=== PATIENT | male | born 1960 | race Caucasian/White ===

== ENCOUNTER 2016-09-20 06:23 | Emergency (ER) | payer OTHER ==
[2016-09-20] MEDS ORDERED: IPRATROPIUM-ALBUTEROL 3 ML NEB INHALATION STA (07:25)
--- NOTE | 2016-09-20 07:43 | XR ---
EXAMINATION TYPE: XR chest 2V DATE OF EXAM: 09/20/2016 7:39 AM COMPARISON: Chest x-ray November 04, 2010. HISTORY: Shortness of breath TECHNIQUE: Frontal and lateral views of the chest are obtained. FINDINGS: There is no focal air space opacity, pleural effusion, or pneumothorax seen. The cardiac silhouette size is within normal limits. The osseous structures are intact. IMPRESSION: No acute cardiopulmonary process.
--- NOTE | 2016-09-20 08:32 | ED ---
SOB HPI - General Chief Complaint: Shortness of Breath Stated Complaint: KAMALA Time Seen by Provider: 09/20/16 07:18 Source: patient Mode of arrival: ambulatory Limitations: no limitations - History of Present Illness Initial Comments: This 56-year-old white male presents with the complaint of shortness of breath. He's also had a nonproductive cough. His symptoms have been present for over 2 days. He states that he has had significant nasal congestion and cannot breathe out of his nose this morning. His symptoms worsened at approximately 4: 30 AM today. He complains of chest congestion as well but denies any fever or chest pains. He denies any known previous cardiac or pulmonary problems. He denies any asthma or COPD. He saw his primary care physician 2 days ago and was placed on Flonase, Tessalon Perles, and Zithromax. He denies any alleviation of the symptoms with these medications. He also is placed on a steroid pack approximately 2 weeks ago. He denies any other complaints or modifying factors. He denies any leg pain or swelling. - Related Data Home Medications Medication Instructions Recorded Confirmed Azithromycin [Zithromax] See Taper PO DAILY 09/20/16 09/20/16 Benzonatate [Tessalon Perles] 200 mg PO TID 09/20/16 09/20/16 Fluticasone Nasal [place] [Flonase 2 spr EA NOSTRIL DAILY PRN 09/20/16 09/20/16 Nasal [place]] Previous Rx's Medication Instructions Recorded Albuterol Sulfate [Proair Hfa] 2 puff INHALATION Q6HR PRN #1 09/20/16 inhaler Amoxic-Pot Clav 875-125Mg 1 each PO Q12HR #20 tablet 09/20/16 [Augmentin Xr 875-125] guaiFENesin-Coden 100-10MG/5ML 10 ml PO Q4HR PRN #250 ml 09/20/16 [Robitussin AC] Allergies Allergy/AdvReac Type Severity Reaction Status Date / Time No Known Allergies Allergy Verified 09/20/16 06:28 Review of Systems ROS Statement: Those systems with pertinent positive or pertinent negative responses have been documented in the HPI. ROS Other: All systems not noted in ROS Statement are negative. Past Medical History Past Medical History: Hyperlipidemia Additional Past Medical History / Comment(s): prostate cancer History of Any Multi-Drug Resistant Organisms: None Reported Past Surgical History: Prostate Surgery, Tonsillectomy Past Psychological History: No Psychological Hx Reported Smoking Status: Former smoker Past Alcohol Use History: Rare Past Drug Use History: None Reported General Exam - General Exam Comments Initial Comments: GENERAL: The patient is well nourished and well hydrated. VITAL SIGNS: Heart rate, blood pressure, respiratory rate reviewed as recorded in nurse's notes. EYES: Pupils are round and reactive. Extraocular movements are intact. No conjunctival / lid redness or swelling. ENT: No external evidence of injury, swelling, or ecchymosis. Airway is patent. Throat is clear. There is moderate nasal congestion noted. NECK: Nontender. No swelling or evidence of injury. No subcutaneous emphysema. Trachea is midline. No thyroid mass. HEART: Regular rate and rhythm. Good peripheral pulses. LUNGS/CHEST: Breath sounds clear and equal bilaterally. No rales, rhonchi, or wheezes. No ecchymosis, subcutaneous emphysema, or tenderness. ABDOMEN: Abdomen soft without tenderness. No palpable masses or organomegaly. No peritoneal signs. No abdominal wall swelling or ecchymosis. EXTREMITIES: No extremity tenderness. Normal muscle tone and function. No thoracolumbar tenderness. NEUROLOGIC: Sensation is grossly intact. Cranial nerve exam reveals face is symmetrical, tongue is midline, speech is clear. SKIN: No abrasions or ecchymosis is noted. No induration or masses noted. PSYCHIATRIC: Alert and oriented. Appropriate behavior and judgment. Limitations: no limitations Course Vital Signs 09/20/16 09/20/16 09/20/16 06:25 07:30 07:49 Temperature 97.8 F Pulse Rate 68 72 63 Respiratory 18 18 Rate Blood Pressure 143/87 132/88 O2 Sat by Pulse 99 97 Oximetry 09/20/16 08:04 Temperature Pulse Rate 66 Respiratory Rate Blood Pressure O2 Sat by Pulse Oximetry Medical Decision Making - Medical Decision Making The patient was seen and examined. All diagnostics were reviewed. The influenza test was negative. The chest x-ray did not show any acute process. The EKG shows a normal sinus rhythm at a rate of 66. There is no ST elevation identified. The CT interval is 166, QRS duration is 90, and QTC intervals 421. The patient received a double DuoNeb breathing treatment. He is having some moderate relief on recheck. Overall, it is felt as though he has a bronchitis and sinusitis. It is felt as though he is stable for discharge with some medication changes. Return parameters are discussed. - Lab Data Lab Results 09/20/16 Range/Units 07:33 Influenza Type A RNA Not Detected (Not Detectd) Influenza Type B (PCR) Not Detected (Not Detectd) Disposition Clinical Impression: Bronchitis, Sinusitis Disposition: HOME SELF-CARE Condition: Good Instructions: Acute Bronchitis (ED), Sinusitis (ED) Additional Instructions: Please stop the Tessalon Perles as well as the Zithromax antibiotic. You may continue with the Flonase nasal spray. You also may benefit from utilizing Afrin nasal spray for 3 days or less. Prescriptions: Albuterol Sulfate [Proair Hfa] 2 puff INHALATION Q6HR PRN #1 inhaler PRN Reason: Shortness Of Breath Or Wheezing Amoxic-Pot Clav 875-125Mg [Augmentin Xr 875-125] 1 each PO Q12HR #20 tablet guaiFENesin-Coden 100-10MG/5ML [Robitussin AC] 10 ml PO Q4HR PRN #250 ml PRN Reason: Cough Referrals: Radha Yan DO [Primary Care Provider] - 1-2 days Time of Disposition: 08:29
[2016-09-20 09:04] VITALS: BP 127/76; PULSE 76; RESP 14; TEMP 97.1
== END 2016-09-20 09:04 | disposition home or self-care (01) ==
LOC: EC 06:23
DX: J40 Bronchitis, not specified as acute or chronic (principal); J32.9 Chronic sinusitis, unspecified; Z87.891 Personal history of nicotine dependence; Z79.899 Other long term (current) drug therapy
CPT/HCPCS: 71020; 87502; 93005; 94640; 99285

== ENCOUNTER 2016-11-12 10:15 | Day surgery (SDC) | payer OTHER ==
[2016-11-09 15:21] VITALS: BMI 32.4
[~2016-11-12 10:15] MED LIST: LACTATED RINGERS 1,000 ML IV SCH
[2016-11-12] MEDS ORDERED: LIDOCAINE 1% 20 ML VIAL (10MG/ML) FOR IV START INTRADERMA ONE (11:58)
[2016-11-12 12:03] VITALS: RESP 18; TEMP 98.7
[2016-11-12] MEDS ORDERED: PROPOFOL 10 MG/ML 20 ML VIAL IV ONE (12:19)
--- NOTE | 2016-11-12 12:37 | P.PCN ---
Date of Procedure: 11/12/16 Preoperative Diagnosis: Postoperative Diagnosis: Procedure(s) Performed: BRIEF HISTORY: Patient is a 56-year-old pleasant female, scheduled for an elective colonoscopy as a part of evaluation of prior history of colon polyps. PROCEDURE PERFORMED: Colonoscopy. PREOPERATIVE DIAGNOSIS: History of colon polyps. IV sedation per Anesthesia. PROCEDURE: After informed consent was obtained, the patient, was brought into the endoscopy unit. IV sedation was administered by Anesthesia under continuous monitoring. Digital rectal examination was normal. Initially the Olympus CF- 160 flexible video colonoscope was then inserted in the rectum, gradually advanced into the cecum without any difficulty. Careful examination was performed as the scope was gradually being withdrawn. Ileocecal valve and the appendiceal orifice were visualized and appeared normal. Prep was excellent. Mucosa of the cecum, ascending colon, transverse colon, descending colon, sigmoid colon, and rectum appeared normal. Scattered sigmoid diverticulosis seen. Retroflexion was performed in the rectum and no lesions were seen. The patient tolerated the procedure well. IMPRESSION: Normal-appearing colon from rectum to cecum with no evidence of colorectal neoplasia. Scattered sigmoid diverticula cyst. RECOMMENDATIONS: Findings of this examination were discussed with the patient as well as his family. He was advised to have a repeat surveillance colonoscopy in 5 years because of the prior history of colon polyps. Implants: Indications for Procedure: Operative Findings: Description of Procedure:
[2016-11-12 13:02] VITALS: BP 121/80; PULSE 63
== END 2016-11-12 13:25 | disposition home or self-care (01) ==
LOC: ORWHC2ENDO 10:15
PROVIDERS: ATTEND Internal Medicine Gastroenterology
DX: Z12.11 Encounter for screening for malignant neoplasm of colon (principal); K57.30 Diverticulosis of large intestine without perforation or abscess without bleeding; Z86.010 Personal history of colon polyps; Z87.891 Personal history of nicotine dependence
CPT/HCPCS: J2704; G0105; 45378

== ENCOUNTER 2016-11-15 10:11 | Emergency (ER) | payer OTHER ==
[2016-11-15 10:18] VITALS: RESP 18; TEMP 98
[2016-11-15] MEDS ORDERED: ASPIRIN 81 MG CHEW PO STA (10:25)
[2016-11-15] MEDS ORDERED: IPRATROPIUM-ALBUTEROL 3 ML NEB INHALATION STA (10:26)
[2016-11-15 10:45] LABS: Basophils % (A) 1 %; CH 30.4; CHCM 35.7; Eosinophils # (A) 0.2 k/uL (0-0.7); Eosinophils % (A) 3 %; HCT 43.2 % (39.0-53.0); HDW 2.95; HGB 15.4 gm/dL (13.0-17.5); Luc # (Auto) 0.18; Luc % (Auto) 3; Lymphocytes # (A) 1.7 k/uL (1.0-4.8); Lymphocytes % (A) 26 %; MCH 30.5 pg (25.0-35.0); MCHC 35.7 g/dL (31.0-37.0); MCV 85.4 fL (80.0-100.0); Mean Platelet Volume 6.7; Monocytes # (A) 0.5 k/uL (0-1.0); Monocytes % (A) 7 %; Neutrophils # (A) 3.9 k/uL (1.3-7.7); Neutrophils % (A) 60 %; RBC 5.06 m/uL (4.30-5.90); RDW 13.1 % (11.5-15.5); WBC 6.4 k/uL (3.8-10.6); WBC (Perox) 6.64
[2016-11-15 10:53] LABS: Partial Thromboplastin Time 22.7 sec (22.0-30.0)
[2016-11-15 10:56] LABS: ALT 46 U/L (21-72); AST 41 U/L (17-59); Alkaline Phosphatase 56 U/L (38-126); Anion Gap 10 mmol/L; Blood Urea Nitrogen 23 mg/dL (9-20); Calcium 8.8 mg/dL (8.4-10.2); Carbon Dioxide 21 mmol/L (22-30); Chloride 109 mmol/L (98-107); Glucose 106 mg/dL (74-99); Magnesium 2.1 mg/dL (1.6-2.3); Non-African American GFR(MDRD) >60 (>60 ml/min/1.73 sqM); Potassium 4.2 mmol/L (3.5-5.1); Sodium 140 mmol/L (137-145); Total Bilirubin 0.6 mg/dL (0.2-1.3); Total Protein 6.9 g/dL (6.3-8.2)
[2016-11-15 10:57] VITALS: PULSE 67
[2016-11-15 11:04] LABS: Creatine Kinase 550 U/L (55-170)
[2016-11-15 11:17] LABS: Troponin I <0.012 ng/mL (0.000-0.034)
[2016-11-15 11:22] LABS: Creatine Kinase MB 7.3 ng/mL (0.0-2.4)
--- NOTE | 2016-11-15 11:33 | XR ---
EXAMINATION TYPE: XR chest 2V DATE OF EXAM: 11/15/2016 COMPARISON: Prior chest x-ray 20 Oct 2016 HISTORY: Shortness of breath and chest pain TECHNIQUE: Frontal and lateral views of the chest are obtained. FINDINGS: There is no focal air space opacity, pleural effusion, or pneumothorax seen. The cardiac silhouette size is within normal limits. There are overlying cardiac leads. The osseous structures a re intact. IMPRESSION: No acute cardiopulmonary process.
--- NOTE | 2016-11-15 11:45 | ED ---
General Adult HPI - General Chief complaint: Shortness of Breath Stated complaint: SOB Time Seen by Provider: 11/15/16 10:20 Source: patient, RN notes reviewed Mode of arrival: ambulatory Limitations: no limitations - History of Present Illness Initial comments: Patient 56-year-old male who presents emergency room today with a chief complaint shortness breath. Patient does admit that he woke up this morning proxy 7:30 AM with increased shortness breath. States feels like he cannot take a deep breath. He does admit that symptoms haven't tomorrow once just a few months ago was here in the emergency room had a breathing treatment which didn't improve his symptoms. He denies any history of lung or heart disease. Patient states is not taking any medications on regular basis. He denies any other complaints or symptoms. Patient denies any recent fever, chills, chest pain, back pain, abdominal pain, nausea or vomiting, numbness or tingling, dysuria or hematuria, constipation or diarrhea, headaches or visual changes, or any other complaints. - Related Data Previous Rx's Medication Instructions Recorded Albuterol Inhaler [Ventolin Hfa 1 - 2 puff INHALATION Q4-6H PRN #1 11/15/16 Inhaler] inhaler Fluticasone Propionate [Flonase 1 - 2 spray EA NOSTRIL DAILY 5 Days 11/15/16 Allergy Relief] Allergies Allergy/AdvReac Type Severity Reaction Status Date / Time No Known Allergies Allergy Verified 11/15/16 10:18 Review of Systems ROS Statement: Those systems with pertinent positive or pertinent negative responses have been documented in the HPI. ROS Other: All systems not noted in ROS Statement are negative. Past Medical History Past Medical History: Cancer Additional Past Medical History / Comment(s): HX OF PROSTATE CANCER WITH SURGERY , HX OF POLYPS, BACK PAIN. History of Any Multi-Drug Resistant Organisms: None Reported Past Surgical History: Prostate Surgery, Tonsillectomy Additional Past Surgical History / Comment(s): RIGHT FOOT SURGERY Past Psychological History: No Psychological Hx Reported Smoking Status: Former smoker Past Alcohol Use History: Occasional, Rare Additional Past Alcohol Use History / Comment(s): SMOKED 1PPD. QUIT SMOKING 2010. SMOKED ON AND OFF SINCE 22 YRS OLD Past Drug Use History: None Reported - Past Family History Father Family Medical History: Cancer Additional Family Medical History / Comment(s): LYMPH NODE CANCER Brother(s) Family Medical History: Cancer Additional Family Medical History / Comment(s): SKIN CANCER General Exam - General Exam Comments Initial Comments: General: The patient is awake and alert, in no distress, and does not appear acutely ill. Eye: Pupils are equal, round and reactive to light, extra-ocular movements are intact. No nystagmus. There is normal conjunctiva bilaterally. No signs of icterus. Ears, nose, mouth and throat: There are moist mucous membranes and no oral lesions. Neck: The neck is supple, there is no tenderness or JVD. Cardiovascular: There is a regular rate and rhythm. No murmur, rub or gallop is appreciated. Respiratory: Lungs are clear to auscultation, respirations are non-labored, breath sounds are equal. No wheezes, stridor, rales, or rhonchi. Gastrointestinal: Soft, non-distended, non-tender abdomen without masses or organomegaly noted. There is no rebound or guarding present. No CVA tenderness. Bowel sounds are unremarkable. Musculoskeletal: Normal ROM, no tenderness. Strength 5/5. Sensation intact. Pulses equal bilaterally 2+. Neurological: A&O x 3. CN II-XII intact, There are no obvious motor or sensory deficits. Coordination appears grossly intact. Speech is normal. Skin: Skin is warm and dry and no rashes or lesions are noted. Psychiatric: Cooperative, appropriate mood & affect, normal judgment. Limitations: no limitations Course Vital Signs 11/15/16 11/15/16 11/15/16 10:15 10:36 10:55 Temperature 98.0 F Pulse Rate 73 67 Respiratory 18 18 Rate Blood Pressure 143/74 O2 Sat by Pulse 98 Oximetry 11/15/16 11:03 Temperature Pulse Rate 67 Respiratory Rate Blood Pressure O2 Sat by Pulse Oximetry Medical Decision Making - Medical Decision Making Patient reexamined at this time shows no signs of distress. Resting comfortably in the stretcher. Doesn't improvement after breathing treatment here in the emergency room. Patient's labs been reviewed. Negative d-dimer. Negative cardiac enzymes. EKG shows normal sensory. Chest x-ray reviewed negative. Patient's vitals are stable. Feeling better after breathing treatment. Case discussed in detail with attending physician Dr. Reese. Patient will be discharged home he does have an inhaler that he was given last time he was seen here in the emergency room for this complaint. He is advised to use inhaler every 46 hours 1-2 puffs. Advised close follow-up family doctor in the next 1-2 days. Will also be given Flonase for any of the congestion nasally. He is advised return to emergency room if there is any pain, increase or worsening symptoms or any other concerns. - Lab Data Result diagrams: 11/15/16 10:35 11/15/16 10:35 Lab Results 11/15/16 11/15/16 11/15/16 Range/Units 10:35 10:35 10:35 WBC 6.4 (3.8-10.6) k/uL RBC 5.06 (4.30-5.90) m/uL Hgb 15.4 (13.0-17.5) gm/dL Hct 43.2 (39.0-53.0) % MCV 85.4 (80.0-100.0) fL MCH 30.5 (25.0-35.0) pg MCHC 35.7 (31.0-37.0) g/dL RDW 13.1 (11.5-15.5) % Plt Count 210 (150-450) k/uL Neutrophils % 60 % Lymphocytes % 26 % Monocytes % 7 % Eosinophils % 3 % Basophils % 1 % Neutrophils # 3.9 (1.3-7.7) k/uL Lymphocytes # 1.7 (1.0-4.8) k/uL Monocytes # 0.5 (0-1.0) k/uL Eosinophils # 0.2 (0-0.7) k/uL Basophils # 0.0 (0-0.2) k/uL PT (9.0-12.0) sec INR (<1.1) APTT (22.0-30.0) sec D-Dimer (<0.60) mg/L FEU Sodium 140 (137-145) mmol/L Potassium 4.2 (3.5-5.1) mmol/L Chloride 109 H (98-107) mmol/L Carbon Dioxide 21 L (22-30) mmol/L Anion Gap 10 mmol/L BUN 23 H (9-20) mg/dL Creatinine 0.74 (0.66-1.25) mg/dL Est GFR (MDRD) Af Amer >60 (>60 ml/min/1.73 sqM) Est GFR (MDRD) Non-Af >60 (>60 ml/min/1.73 sqM) Glucose 106 H (74-99) mg/dL Calcium 8.8 (8.4-10.2) mg/dL Magnesium 2.1 (1.6-2.3) mg/dL Total Bilirubin 0.6 (0.2-1.3) mg/dL AST 41 (17-59) U/L ALT 46 (21-72) U/L Alkaline Phosphatase 56 (38-126) U/L Total Creatine Kinase 550 H (55-170) U/L CK-MB (CK-2) 7.3 H* (0.0-2.4) ng/mL CK-MB (CK-2) Rel Index 1.3 Troponin I <0.012 (0.000-0.034) ng/mL Total Protein 6.9 (6.3-8.2) g/dL Albumin 4.3 (3.5-5.0) g/dL 11/15/16 11/15/16 Range/Units 10:35 10:35 WBC (3.8-10.6) k/uL RBC (4.30-5.90) m/uL Hgb (13.0-17.5) gm/dL Hct (39.0-53.0) % MCV (80.0-100.0) fL MCH (25.0-35.0) pg MCHC (31.0-37.0) g/dL RDW (11.5-15.5) % Plt Count (150-450) k/uL Neutrophils % % Lymphocytes % % Monocytes % % Eosinophils % % Basophils % % Neutrophils # (1.3-7.7) k/uL Lymphocytes # (1.0-4.8) k/uL Monocytes # (0-1.0) k/uL Eosinophils # (0-0.7) k/uL Basophils # (0-0.2) k/uL PT 10.0 (9.0-12.0) sec INR 1.0 (<1.1) APTT 22.7 (22.0-30.0) sec D-Dimer <0.17 (<0.60) mg/L FEU Sodium (137-145) mmol/L Potassium (3.5-5.1) mmol/L Chloride (98-107) mmol/L Carbon Dioxide (22-30) mmol/L Anion Gap mmol/L BUN (9-20) mg/dL Creatinine (0.66-1.25) mg/dL Est GFR (MDRD) Af Amer (>60 ml/min/1.73 sqM) Est GFR (MDRD) Non-Af (>60 ml/min/1.73 sqM) Glucose (74-99) mg/dL Calcium (8.4-10.2) mg/dL Magnesium (1.6-2.3) mg/dL Total Bilirubin (0.2-1.3) mg/dL AST (17-59) U/L ALT (21-72) U/L Alkaline Phosphatase (38-126) U/L Total Creatine Kinase (55-170) U/L CK-MB (CK-2) (0.0-2.4) ng/mL CK-MB (CK-2) Rel Index Troponin I (0.000-0.034) ng/mL Total Protein (6.3-8.2) g/dL Albumin (3.5-5.0) g/dL Disposition Clinical Impression: Upper respiratory infection Disposition: HOME SELF-CARE Condition: Good Additional Instructions: Please use medication as discussed. Please follow-up with family doctor in the next 2 days. Please return to emergency room if the symptoms increase or worsen or for any other concerns. Prescriptions: Albuterol Inhaler [Ventolin Hfa Inhaler] 1 - 2 puff INHALATION Q4-6H PRN #1 inhaler PRN Reason: Cough Fluticasone Propionate [Flonase Allergy Relief] 1 - 2 spray EA NOSTRIL DAILY 5 Days Referrals: Radha Yan DO [Primary Care Provider] - 1-2 days Time of Disposition: 12:32
[2016-11-15 12:44] VITALS: BP 135/75
== END 2016-11-15 12:44 | disposition home or self-care (01) ==
LOC: EC 10:11
DX: J06.9 Acute upper respiratory infection, unspecified (principal); R06.02 Shortness of breath; Z85.46 Personal history of malignant neoplasm of prostate; Z87.891 Personal history of nicotine dependence
CPT/HCPCS: 36415; 71020; 80053; 82550; 82553; 83735; 84484; 85025; 85379; 85610; 85730; 93005; 94640; 99285